=== PATIENT | male | born 1930 ===

== ENCOUNTER 2017-09-13 11:05 | Emergency (ER) | payer MEDICAID ==
--- NOTE | 2017-09-13 12:43 | ED PDOC ---
HPI: Male Pain Time Seen by Provider: 09/13/17 12:11 Chief Complaint (Nursing): Male Genitourinary Chief Complaint (Provider): Male Genitourinary History Per: Patient History/Exam Limitations: no limitations Onset/Duration Of Symptoms: Days Current Symptoms Are (Timing): Still Present Quality Of Discomfort: Burning (urination) Additional History Per: Family (daughter) Additional Complaint(s): 86 y/o male With a PMHx of thyroid problems and HTN and accompanied by daughter presents to the ED complaining of dysuria, onset last night. Patient states he is currently pain free but notes pain in the back and lower abdomen with urination. On August 24, patient was admitted to a hospital in [place] for bradycardia and urinary retention. Patient reports of taking half a dose of ciprofloxacin but felt worse. Patient also reports of having a tactile fever yesterday and did not check temperature. PMD: In [place]. Past Medical History Reviewed: Historical Data, Nursing Documentation, Vital Signs Vital Signs: Last Vital Signs Temp 98.0 F 09/13/17 11:10 Pulse 56 L 09/13/17 11:10 Resp 20 09/13/17 11:10 BP 158/87 H 09/13/17 11:10 Pulse Ox 95 09/13/17 11:10 - Medical History PMH: HTN, Hypothyroidism - Surgical History Surgical History: No Surg Hx - Family History Family History: States: Unknown Family Hx - Home Medications Home Medications: Ambulatory Orders Medication Instructions Recorded Phenazopyridine HCl [Pyridium] 200 mg PO Q12 PRN #3 tablet 09/13/17 - Allergies Allergies/Adverse Reactions: Allergies Allergy/AdvReac Type Severity Reaction Status Date / Time No Known Allergies Allergy Verified 09/13/17 12:18 Review of Systems ROS Statement: Except As Marked, All Systems Reviewed And Found Negative Gastrointestinal: Positive for: Abdominal Pain (lower) Genitourinary Male: Positive for: Dysuria Musculoskeletal: Positive for: Back Pain (low) Physical Exam - Reviewed Nursing Documentation Reviewed: Yes Vital Signs Reviewed: Yes - Physical Exam Appears: Positive for: No Acute Distress Head Exam: Positive for: ATRAUMATIC Skin: Positive for: Normal Color Eye Exam: Positive for: Normal appearance Neck: Positive for: Normal Cardiovascular/Chest: Positive for: Regular Rate, Rhythm. Negative for: Murmur Respiratory: Positive for: Normal Breath Sounds. Negative for: Respiratory Distress Gastrointestinal/Abdominal: Positive for: Normal Exam, Soft. Negative for: Tenderness Back: Positive for: Normal Inspection. Negative for: L CVA Tenderness, R CVA Tenderness Extremity: Positive for: Normal ROM. Negative for: Deformity Neurologic/Psych: Positive for: Alert, Oriented. Negative for: Motor/Sensory Deficits - Laboratory Results Result Diagrams: 09/13/17 12:30 09/13/17 12:30 - ECG O2 Sat by Pulse Oximetry: 95 (RA) Pulse Ox Interpretation: Normal Medical Decision Making Medical Decision Making: Time: 1230 Plan: -- CT Abd/Pelvis w/o PO or IV contrast -- CMP -- Lipase -- CBC with differentials -- Urine Culture -- Urinalysis Time: 1423 CT ABD/PELVIS RESULTS FINDINGS: LOWER THORAX: There is marked right hemidiaphragm elevation with associated compressive atelectasis at the right lower lobe. Small calcified granuloma seen at the left lower lobe at the medial base. No pleural or pericardial effusion. LIVER: Unremarkable. No gross lesion or ductal dilatation. GALLBLADDER AND BILE DUCTS: Unremarkable. PANCREAS: Unremarkable. No gross lesion or ductal dilatation. SPLEEN: Unremarkable. ADRENALS: Unremarkable. No mass. KIDNEYS AND URETERS: There multiple phleboliths identified inferior pelvis however there is no obstructive uropathy bilaterally or ureteral radiodense calculi either. No definitive intrarenal calculi identified bilaterally. Multiple bilateral renal cysts are identified with the dominant measuring 3.1 cm greatest dimension and the dominant left renal cyst identified at the lower pole measuring 2.7 cm greatest dimension. For additional bilateral renal lucencies too small to characterize. The lack of intravenous contrast limits interpretation. VASCULATURE: Unremarkable. No aortic aneurysm. BOWEL: Collapsed stomach. No bowel obstruction evident. Moderate fecal loading seen throughout the colon. Left colonic diverticulosis appears nonacute but is concentrated at the sigmoid segment. Due to elevate right hemidiaphragm, the hepatic flexure is interposed between the hemidiaphragm in the right lobe liver. APPENDIX: Unremarkable. Normal appendix. PERITONEUM: Unremarkable. No free fluid. No free air. LYMPH NODES: Unremarkable. No enlarged lymph nodes. BLADDER: Urinary bladder is decompressed and appears unremarkable as imaged. Thickness of the wall is difficult to evaluate due to decompression. REPRODUCTIVE: Enlarged prostate gland. BONES: Multiple old healed left rib fractures identified inferiorly. OTHER FINDINGS: None. IMPRESSION: 1. No obstructive uropathy identified bilaterally or radiodense urolithiasis. Urinary bladder is decompressed with limited evaluation of the the wall appreciated. Bilateral renal lucencies are identified with some too small to characterize. Dominant bilateral lucencies reflect cysts. No perinephric reaction bilaterally. 2. Markedly elevated right hemidiaphragm with hepatic flexure interposed between the right hemidiaphragm and the liver. Extensive left colonic diverticulosis without definite diverticulitis appreciated. Scribe Attestation: Documented by Gem Carty, acting as a scribe for Stacey Perales PA-C. Provider Scribe Attestation: All medical record entries made by the Scribe were at my direction and personally dictated by me. I have reviewed the chart and agree that the record accurately reflects my personal performance of the history, physical exam, medical decision making, and the department course for this patient. I have also personally directed, reviewed, and agree with the discharge instructions and disposition. Disposition - Clinical Impression Clinical Impression: Dysuria - Patient ED Disposition Is Patient to be Admitted: No - Disposition Referrals: Mateus Lea MD [Staff Provider] - Disposition: Routine/Home Disposition Time: 15:04 Condition: FAIR Prescriptions: Phenazopyridine HCl [Pyridium] 200 mg PO Q12 PRN #3 tablet PRN Reason: Urinary Discomt Instructions: Dysuria, Adult (DC) Print Language: [place]
[2017-09-13 12:50] LABS: BASO % 0.4 % (0.0-2.0); EOS # 0.1 K/uL (0.0-0.7); HEMOGLOBIN 13.4 g/dL (12.0-18.0); LYMPH # 1.2 K/uL (1.0-4.3); LYMPH % 18.9 % (20.0-40.0); MEAN CELL VOLUME 82.6 fl (80.0-94.0); MEAN CORPUSCULAR HEMOGLOBIN 27.8 pg (27.0-31.0); MEAN CORPUSCULAR HGB CONC 33.6 g/dL (33.0-37.0); MONO # 0.5 K/uL (0.0-0.8); MONO % 8.7 % (0.0-10.0); NEUT # 4.4 K/uL (1.8-7.0); RBC 4.84 Mil/uL (4.40-5.90); RED CELL DISTRIBUTION WIDTH 15.1 % (11.5-14.5); WHITE BLOOD COUNT 6.3 K/uL (4.8-10.8)
[2017-09-13 12:53] LABS: URINE BILIRUBIN NEGATIVE (NEGATIVE); URINE BLOOD SMALL (NEGATIVE); URINE CLARITY CLEAR (Clear); URINE COLOR STRAW (YELLOW); URINE GLUCOSE (UA) NEG (Normal); URINE LEUKOCYTE ESTERASE NEG Leu/uL (Negative); URINE PROTEIN NEGATIVE (NEGATIVE); URINE UROBILINOGEN 0.2-1.0 mg/dL (0.2-1.0)
[2017-09-13 13:07] LABS: CALCIUM 9.5 mg/dL (8.4-10.2)
[2017-09-13 13:08] LABS: ALB/GLOB RATIO 1.4 (1.0-2.1); ALBUMIN 4.1 g/dL (3.5-5.0)
--- NOTE | 2017-09-13 14:24 | CT ---
Date of service: 09/13/2017 PROCEDURE: CT Abdomen and Pelvis without intravenous contrast HISTORY: right flank pain/dysuria COMPARISON: None. TECHNIQUE: Helical CT of the abdomen and pelvis was performed without oral or intravenous contrast as per referring physician requestHelical CT of the abdomen and pelvis was performed without oral or intravenous contrast as per referring physician request Contrast dose: None Radiation dose: Total exam DLP = 691.97 mGy-cm. This CT exam was performed using one or more of the following dose reduction techniques: Automated exposure control, adjustment of the mA and/or kV according to patient size, and/or use of iterative reconstruction technique. FINDINGS: LOWER THORAX: There is marked right hemidiaphragm elevation with associated compressive atelectasis at the right lower lobe. Small calcified granuloma seen at the left lower lobe at the medial base. No pleural or pericardial effusion. LIVER: Unremarkable. No gross lesion or ductal dilatation. GALLBLADDER AND BILE DUCTS: Unremarkable. PANCREAS: Unremarkable. No gross lesion or ductal dilatation. SPLEEN: Unremarkable. ADRENALS: Unremarkable. No mass. KIDNEYS AND URETERS: There multiple phleboliths identified inferior pelvis however there is no obstructive uropathy bilaterally or ureteral radiodense calculi either. No definitive intrarenal calculi identified bilaterally. Multiple bilateral renal cysts are identified with the dominant measuring 3.1 cm greatest dimension and the dominant left renal cyst identified at the lower pole measuring 2.7 cm greatest dimension. For additional bilateral renal lucencies too small to characterize. The lack of intravenous contrast limits interpretation. VASCULATURE: Unremarkable. No aortic aneurysm. BOWEL: Collapsed stomach. No bowel obstruction evident. Moderate fecal loading seen throughout the colon. Left colonic diverticulosis appears nonacute but is concentrated at the sigmoid segment. Due to elevate right hemidiaphragm, the hepatic flexure is interposed between the hemidiaphragm in the right lobe liver. APPENDIX: Unremarkable. Normal appendix. PERITONEUM: Unremarkable. No free fluid. No free air. LYMPH NODES: Unremarkable. No enlarged lymph nodes. BLADDER: Urinary bladder is decompressed and appears unremarkable as imaged. Thickness of the wall is difficult to evaluate due to decompression. REPRODUCTIVE: Enlarged prostate gland. BONES: Multiple old healed left rib fractures identified inferiorly. OTHER FINDINGS: None. IMPRESSION: 1. No obstructive uropathy identified bilaterally or radiodense urolithiasis. Urinary bladder is decompressed with limited evaluation of the the wall appreciated. Bilateral renal lucencies are identified with some too small to characterize. Dominant bilateral lucencies reflect cysts. No perinephric reaction bilaterally. 2. Markedly elevated right hemidiaphragm with hepatic flexure interposed between the right hemidiaphragm and the liver. Extensive left colonic diverticulosis without definite diverticulitis appreciated.
[2017-09-13 15:17] VITALS: BP 132/82; PULSE 62; RESP 15; TEMP 98.6; O2SAT 98
== END 2017-09-13 15:17 | disposition home or self-care (01) ==
LOC: H.ER 11:05
DX: R10.9 Unspecified abdominal pain (principal); R30.0 Dysuria; E03.9 Hypothyroidism, unspecified; I10 Essential (primary) hypertension; K57.30 Diverticulosis of large intestine without perforation or abscess without bleeding